=== PATIENT | male | born 1970 | race Hispanic/Latino ===

== ENCOUNTER 2017-09-16 08:49 | Emergency (ER) | payer SELFPAY ==
[2017-09-16] MEDS ORDERED: IPRATROPIUM BROM 0.5MG/2.5ML ONE (09:15)
[2017-09-16] MEDS ORDERED: ALBUTEROL 2.5 MG/3 ML NEB SOL ONE (09:15)
[2017-09-16] MEDS ORDERED: HYDROCODONE/CHLORPHEN 5 ML/OSYR ONE (09:15)
--- NOTE | 2017-09-16 10:59 | RAD REPORT ---
EXAM DESCRIPTION: Joanna Cruz (2 Views)09/16/2017 9:52 am CLINICAL HISTORY: Shortness of breath COMPARISON: None FINDINGS: The lungs appear clear of acute infiltrate. The heart is normal size IMPRESSION: No acute abnormalities displayed
--- NOTE | 2017-09-16 11:06 | ER ---
Nurse's Notes [facility] Name: Mauricio Smith Age: 46 yrs Sex: Male : 1970 Arrival Date: 09/16/2017 Time: 08:53 Bed 17 Private MD: CARLIE TANG Diagnosis: Bronchitis, not specified as acute or chronic Presentation: 09/16 09:04 Presenting complaint: Patient states: painful cough and runny nose x 1 week. Transition ss of care: patient was not received from another setting of care. Onset of symptoms was September 09, 2017. Risk Assessment: Do you want to hurt yourself or someone else? Patient reports no desire to harm self or others. Initial Sepsis Screen: Does the patient meet any 2 criteria? No. Patient's initial sepsis screen is negative. Does the patient have a suspected source of infection? No. Patient's initial sepsis screen is negative. Care prior to arrival: None. 09:04 Method Of Arrival: Ambulatory ss 09:04 Acuity: JAYME 4 ss Historical: - Allergies: 09:06 No Known Allergies; ss - Home Meds: 09:06 None [Active]; ss - PMHx: 09:06 Hypertension; ss - PSHx: 09:06 back surgery; skin graft to right arm; ss - Immunization history:: Adult Immunizations up to date. - Social history:: Smoking status: Patient uses tobacco products, smokes two packs cigarettes per day. - Ebola Screening: : Patient denies exposure to infectious person Patient denies travel to an Ebola-affected area in the 21 days before illness onset. Screenin:20 Abuse screen: Denies threats or abuse. Denies injuries from another. Nutritional sg screening: No deficits noted. Tuberculosis screening: No symptoms or risk factors identified. Never had TB. Fall Risk None identified. Assessment: 09:10 General: Appears in no apparent distress. comfortable, well groomed, well developed, sg well nourished, Behavior is calm, cooperative, appropriate for age. Pain: Denies pain. Neuro: No deficits noted. Cardiovascular: Capillary refill is brisk in bilateral fingers Patient's skin is warm and dry. Respiratory: Reports cough that is Airway is patent Respiratory effort is even, unlabored, Respiratory pattern is regular, symmetrical, Breath sounds with wheezes. GI: No signs and/or symptoms were reported involving the gastrointestinal system. : No signs and/or symptoms were reported regarding the genitourinary system. EENT: Reports nasal congestion. Derm: Skin is pink, warm \T\ dry. Musculoskeletal: No signs and/or symptoms reported regarding the musculoskeletal system. 11:20 Reassessment: pt education provided for follow up d/t blood pressure readings in the ED, and a follow up to monitor progress of current condition, pt stated understanding. Vital Signs: 09:06 BP 180 / 104; Pulse 75; Resp 18; Temp 97.9(TE); Pulse Ox 98% on R/A; Weight 117.93 kg; ss Height 5 ft. 10 in. (177.80 cm); Pain 0/10; 10:01 BP 167 / 119; Pulse 76; Resp 18; Pulse Ox 96% on R/A; mh5 09:06 Body Mass Index 37.31 (117.93 kg, 177.80 cm) ED Course: 08:53 Patient arrived in ED. sb2 08:53 CARLIE TANG is Private Physician. sb2 09:00 Primo Esposito NP is PHCP. pm1 09:00 Wes Mitchell MD is Attending Physician. pm1 09:01 Heladio Wilks, RUBIA is Primary Nurse. sg 09:05 Triage completed. ss 09:06 Arm band placed on right wrist. ss 09:10 Patient has correct armband on for positive identification. Bed in low position. Call sg light in reach. Side rails up X2. Pulse ox on. NIBP on. Head of bed elevated. 09:10 No provider procedures requiring assistance completed. sg 09:39 Patient moved to radiology. sg 09:45 Chest Pa And Lat (2 Views) XRAY In Process Unspecified. EDMS 11:05 CARLIE TANG is Referral Physician. pm1 11:20 Patient did not have IV access during this emergency room visit. sg Administered Medications: 09:19 Drug: Albuterol 2.5 mg Route: Inhalation; sg 09:37 Follow up: Response: No adverse reaction sg 09:19 Drug: AtroVENT Aerosol 0.5 mg Route: Inhalation; sg 09:37 Follow up: Response: No adverse reaction sg 09:19 Drug: Tussionex Pennkinetic ER 5 ml Route: PO; sg 09:37 Follow up: Response: No adverse reaction sg 11:16 Drug: Decadron 10 mg {Note: left ventrogluteal.} Route: IM; Site: Other; Outcome: 11:06 Discharge ordered by . pm1 11:20 Discharged to home ambulatory, with family. sg 11:20 Condition: good 11:20 Discharge instructions given to patient, Instructed on discharge instructions, follow up and referral plans. medication usage, safety practices, Demonstrated understanding of instructions, follow-up care, medications, Prescriptions given X 3. 11:23 Patient left the ED. sg Signatures: Dispatcher [employer] EDHeladio Raza RN RN sg Smirch, Shelby, RN RN ss Primo Esposito, [place] ALDERMAN pm1 Deanna Diego [facility] Ita Yu sb2 Corrections: (The following items were deleted from the chart) 09:21 09:10 Respiratory: Airway is patent Respiratory effort is even, unlabored, Respiratory sg pattern is regular, symmetrical, Breath sounds with wheezes sg
--- NOTE | 2017-09-16 11:06 | EDPHYS ---
Physician Documentation [facility] Name: aMuricio Smith Age: 46 yrs Sex: Male : 1970 Arrival Date: 09/16/2017 Time: 08:53 Bed 17 Private MD: CARLIE TANG ED Physician Wes Mitchell HPI: 09/16 11:00 This 46 yrs old Male presents to ER via Ambulatory with complaints of Chest pm1 Congestion, Cough. 11:00 The patient or guardian reports cough, with no sputum. Onset: The symptoms/episode pm1 began/occurred 2 week(s) ago. Severity of symptoms: in the emergency department the symptoms are unchanged. Modifying factors: The symptoms are alleviated by nothing, the symptoms are aggravated by nothing. Associated signs and symptoms: Pertinent positives: chest pain, with cough, rhinorrhea, Pertinent negatives: fever, sore throat, vomiting. The patient has experienced similar episodes in the past, several times. The patient has not recently seen a physician. Historical: - Allergies: 09:06 No Known Allergies; ss - Home Meds: :06 None [Active]; ss - PMHx: 09:06 Hypertension; ss - PSHx: 09:06 back surgery; skin graft to right arm; ss - Immunization history:: Adult Immunizations up to date. - Social history:: Smoking status: Patient uses tobacco products, smokes two packs cigarettes per day. - Ebola Screening: : Patient denies exposure to infectious person Patient denies travel to an Ebola-affected area in the 21 days before illness onset. ROS: 11:00 Constitutional: Negative for fever, chills, and weight loss, Eyes: Negative for injury, pm1 pain, redness, and discharge, Neck: Negative for injury, pain, and swelling, Cardiovascular: Negative for chest pain, palpitations, and edema. 11:00 Abdomen/GI: Negative for abdominal pain, nausea, vomiting, diarrhea, and constipation, Back: Negative for injury and pain, : Negative for injury, bleeding, discharge, and swelling, MS/Extremity: Negative for injury and deformity, Skin: Negative for injury, rash, and discoloration, Neuro: Negative for headache, weakness, numbness, tingling, and seizure. 11:00 ENT: Positive for rhinorrhea, Negative for ear pain. 11:00 Respiratory: Positive for cough, Negative for dyspnea on exertion, shortness of breath, sputum production, wheezing. Exam: 11:00 Constitutional: This is a well developed, well nourished patient who is awake, alert, pm1 and in no acute distress. Head/Face: Normocephalic, atraumatic. Eyes: Pupils equal round and reactive to light, extra-ocular motions intact. Lids and lashes normal. Conjunctiva and sclera are non-icteric and not injected. Cornea within normal limits. Periorbital areas with no swelling, redness, or edema. 11:00 ENT: Nares patent. No nasal discharge, no septal abnormalities noted. Tympanic membranes are normal and external auditory canals are clear. Oropharynx with no redness, swelling, or masses, exudates, or evidence of obstruction, uvula midline. Mucous membranes moist. Neck: Trachea midline, no thyromegaly or masses palpated, and no cervical lymphadenopathy. Supple, full range of motion without nuchal rigidity, or vertebral point tenderness. No Meningismus. Chest/axilla: Normal chest wall appearance and motion. Nontender with no deformity. No lesions are appreciated. Cardiovascular: Regular rate and rhythm with a normal S1 and S2. No gallops, murmurs, or rubs. Normal PMI, no JVD. No pulse deficits. 11:00 Abdomen/GI: Soft, non-tender, with normal bowel sounds. No distension or tympany. No guarding or rebound. No evidence of tenderness throughout. Back: No spinal tenderness. No costovertebral tenderness. Full range of motion. Skin: Warm, dry with normal turgor. Normal color with no rashes, no lesions, and no evidence of cellulitis. MS/ Extremity: Pulses equal, no cyanosis. Neurovascular intact. Full, normal range of motion. 11:00 Respiratory: the patient does not display signs of respiratory distress, Respirations: normal, Breath sounds: bronchial sounds, that are mild. Vital Signs: 09:06 BP 180 / 104; Pulse 75; Resp 18; Temp 97.9(TE); Pulse Ox 98% on R/A; Weight 117.93 kg; ss Height 5 ft. 10 in. (177.80 cm); Pain 0/10; 10:01 BP 167 / 119; Pulse 76; Resp 18; Pulse Ox 96% on R/A; mh5 09:06 Body Mass Index 37.31 (117.93 kg, 177.80 cm) ss MDM: 09:03 Patient medically screened. pm1 11:05 Data reviewed: vital signs. Data interpreted: Pulse oximetry: on room air is 96 %. pm1 Interpretation: normal. Counseling: I had a detailed discussion with the patient and/or guardian regarding: the historical points, exam findings, and any diagnostic results supporting the discharge/admit diagnosis, radiology results, the need for outpatient follow up, to return to the emergency department if symptoms worsen or persist or if there are any questions or concerns that arise at home, smoking cessation. 09/16 09:09 Order name: Chest Pa And Lat (2 Views) XRAY; Complete Time: 11:01 pm1 Administered Medications: 09:19 Drug: Albuterol 2.5 mg Route: Inhalation; sg 09:37 Follow up: Response: No adverse reaction 09:19 Drug: AtroVENT Aerosol 0.5 mg Route: Inhalation; sg 09:37 Follow up: Response: No adverse reaction 09:19 Drug: Tussionex Pennkinetic ER 5 ml Route: PO; sg 09:37 Follow up: Response: No adverse reaction 11:16 Drug: Decadron 10 mg {Note: left ventrogluteal.} Route: IM; Site: Other; Disposition: 09/16/17 11:06 Discharged to Home. Impression: Bronchitis, not specified as acute or chronic. - Condition is Stable. - Discharge Instructions: Acute Bronchitis, Smoking Cessation, Smoking, You Can Quit, [id number], Cough, Adult, How to Use an Inhaler, [id number]-[id number]. - Prescriptions for Medrol (Levar) 4 mg Oral Tablets, Dose Pack - take 1 tablet by ORAL route as directed - follow package instructions; 1 packet. Albuterol Sulfate 90 mcg/actuation - inhale 1-2 puff by INHALATION route every 4-6 hours; 1 Inhaler. Guaifenesin AC 10- 100 mg/5 mL Oral Liquid - take 10 milliliter by ORAL route every 4 hours As needed; 240 milliliter. - Work release form, Medication Reconciliation Form, Thank You Letter, Antibiotic Education, Prescription Opioid Use form. - Follow up: Emergency Department; When: As needed; Reason: Worsening of condition. Follow up: CARLIE TANG; When: 2 - 3 days; Reason: Recheck today's complaints, Continuance of care, Re-evaluation by your physician. - Problem is new. - Symptoms have improved. Addendum: 09/17/2017 15:26 Co-signature as Attending Physician, Wes Mitchell MD I agree with the assessment and c [email or web address] plan of care. Signatures: Dispatcher [employer] EDHeladio Raza RN RN sg Anderson, Corey, MD MD cha Smirch, Shelby, RN RN ss Marinas, Patrick, SEAMING INSPECTOR SEAMING INSPECTOR pm1 Corrections: (The following items were deleted from the chart) 09/16 11:23 11:06 09/16/2017 11:06 Discharged to Home. Impression: Bronchitis, not specified as sg acute or chronic. Condition is Stable. Forms are Medication Reconciliation Form, Thank You Letter, Antibiotic Education, Prescription Opioid Use. Follow up: Emergency Department; When: As needed; Reason: Worsening of condition. Follow up: CARLIE TANG; When: 2 - 3 days; Reason: Recheck today's complaints, Continuance of care, Re-evaluation by your physician. Problem is new. Symptoms have improved. pm1
[2017-09-16] MEDS ORDERED: DEXAMETHASONE 10 MG/ML VIAL ONE (11:12)
== END 2017-09-16 11:23 | disposition home or self-care (01) ==
LOC: ER 08:49
DX: J40 Bronchitis, not specified as acute or chronic (principal); I10 Essential (primary) hypertension; F17.210 Nicotine dependence, cigarettes, uncomplicated
CPT/HCPCS: 71046; 96372; 99284; J1100

== ENCOUNTER 2020-04-04 07:49 | Emergency (ER) | payer BC, SELFPAY ==
--- NOTE | 2020-04-04 10:00 | RAD REPORT ---
EXAM DESCRIPTION: RAD - Chest Single View - 04/04/2020 9:21 am CLINICAL HISTORY: BLUNT CHEST TRAUMA, left-sided chest pain COMPARISON: September 2017 TECHNIQUE: AP portable chest image was obtained 04/04/2020 9:21 am . FINDINGS: Lung volumes are low. No pulmonary contusion, pneumothorax or pleural fluid collection. He art and vasculature are normal. No acute bone findings seen. Rib detail is limited on single view por table imaging. No acute aortic findings suspected. IMPRESSION: No acute cardiopulmonary process. No gross rib deformity identified. Concerns for rib fracture could be further assessed with dedicated rib series.
--- NOTE | 2020-04-04 10:02 | RAD REPORT ---
EXAM DESCRIPTION: RAD - Ribs Left - 04/04/2020 9:21 am CLINICAL HISTORY: Fall, left-sided chest pain COMPARISON: Portable chest same date FINDINGS: No displaced rib fracture is seen and no non-displaced rib fractures suspected. No aggress edmundo rib lesion. No underlying pneumothorax, effusion, infiltrate or pulmonary contusion. IMPRESSION: Negative left rib series.
--- NOTE | 2020-04-04 10:04 | ER ---
Nurse's Notes [facility] Name: Mauricio Smith Age: 49 yrs Sex: Male : 1970 Arrival Date: 04/04/2020 Time: 07:56 Bed 4 Private MD: Diagnosis: Contusion of front wall of thorax Presentation: 04/04 08:13 Chief complaint: Patient states: L sided chest wall pain that began Friday after ss falling onto a brick from a standing position. Pain is worse with ROM of L shoulder and tender upon palpation. Coronavirus screen: Client denies travel out of the [place] in the last 14 days. Ebola Screen: Patient denies exposure to infectious person. Patient denies travel to an Ebola-affected area in the 21 days before illness onset. Initial Sepsis Screen: Does the patient meet any 2 criteria? No. Patient's initial sepsis screen is negative. Does the patient have a suspected source of infection? No. Patient's initial sepsis screen is negative. Risk Assessment: Do you want to hurt yourself or someone else? Patient reports no desire to harm self or others. Onset of symptoms was April 01, 2020. 08:13 Method Of Arrival: Ambulatory ss 08:13 Acuity: JAYME 4 ss Historical: - Allergies: 08:16 No Known Allergies; ss - PMHx: 08:16 Hypertension; Diabetes - NIDDM; ss - PSHx: 08:16 back; ss - Immunization history:: Adult Immunizations up to date. - Social history:: Smoking status: Patient reports the use of cigarette tobacco products, smokes two packs cigarettes per day. - Family history:: not pertinent. - Hospitalizations: : No recent hospitalization is reported. Screenin:16 Abuse screen: Denies threats or abuse. Denies injuries from another. Nutritional ss screening: No deficits noted. Tuberculosis screening: Never had TB. Fall Risk None identified. Assessment: 08:16 General: Appears in no apparent distress. comfortable, Behavior is calm, cooperative. ss Pain: Complains of pain in left lateral anterior chest Pain currently is 8 out of 10 on a pain scale. Quality of pain is described as aching, tender, Pain began 2-3 days ago Is continuous, Aggravated by increased activity. Neuro: Level of Consciousness is awake, alert, obeys commands, Oriented to person, place, time, situation, Delivery Engineer are equal bilaterally. Cardiovascular: Capillary refill < 3 seconds is brisk in bilateral. Cardiovascular: Denies chest pain, fatigue, lightheadedness, nausea, palpitations, shortness of breath. Respiratory: Airway is patent Respiratory effort is even, unlabored, Respiratory pattern is regular, symmetrical. GI: Patient currently denies diarrhea, nausea, vomiting. : No signs and/or symptoms were reported regarding the genitourinary system. EENT: Nares are clear Oral mucosa is moist. Derm: Skin is intact, is healthy with good turgor, Skin is pink, warm \T\ dry. normal. Musculoskeletal: Circulation, motion, and sensation intact. Range of motion: intact in all extremities, Swelling absent. Vital Signs: 08:13 BP 150 / 94; Pulse 92; Resp 18; Temp 98.0(TE); Pulse Ox 95% on R/A; Weight 113.4 kg; ss Height 5 ft. 7 in. (170.18 cm); Pain 8/10; 09:51 BP 159 / 93; Pulse 85; Resp 18; Pulse Ox 95% ; sv 08:13 Body Mass Index 39.16 (113.40 kg, 170.18 cm) ss ED Course: 07:56 Patient arrived in ED. rg4 08:00 Brian Gaona MD is Attending Physician. rn 08:13 [place] Dalton RN is Primary Nurse. ss 08:15 Triage completed. ss 08:16 Arm band placed on right wrist. ss 08:16 Patient has correct armband on for positive identification. Bed in low position. Call ss light in reach. Pulse ox on. NIBP on. 08:57 Patient moved to radiology via wheelchair. sv 09:21 XRAY Chest (1 view) In Process Unspecified. EDMS 09:21 XRAY Ribs LEFT In Process Unspecified. EDMS 10:27 No provider procedures requiring assistance completed. Patient did not have IV access ss during this emergency room visit. Administered Medications: No medications were administered Outcome: 10:03 Discharge ordered by . rn 10:27 Discharged to home ambulatory. ss 10:27 Condition: good 10:27 Discharge instructions given to patient, Instructed on discharge instructions, follow up and referral plans. medication usage, Demonstrated understanding of instructions, follow-up care, medications. 10:28 Patient left the ED. ss Signatures: Dispatcher [employer] Renée Oconnor, RUBIA RN Brian Rodriguez MD MD rn Smirch, Shelby, RN RN ss Garcia, Rubi 4
--- NOTE | 2020-04-04 10:04 | EDPHYS ---
Physician Documentation [facility] Name: Mauricio Smith Age: 49 yrs Sex: Male : 1970 Arrival Date: 04/04/2020 Time: 07:56 Bed 4 Private MD: ED Physician Brian Gaona HPI: 04/04 08:09 This 49 yrs old Male presents to ER via Unassigned with complaints of Chest rn Pain and Side Pain from Fall. 08:09 The patient or guardian reports chest pain that is located primarily in the anterior rn chest wall, left lateral anterior chest. Onset: The symptoms/episode began/occurred 3 day(s) ago. The pain does not radiate. Associated signs and symptoms: Pertinent negatives: abdominal pain, cough, diaphoresis, shortness of breath, syncope, vomiting. The chest pain is described as dull. Duration: The patient or guardian reports multiple episodes, that wax and wane. Modifying factors: The symptoms are alleviated by nothing. the symptoms are aggravated by deep breath, palpation of area. Severity of pain: At its worst the pain was moderate in the emergency department the pain is unchanged. The patient has not experienced similar symptoms in the past. The patient has not recently seen a physician. Reports left chest wall pain after fall, landed on left side, hit a brick, reports pain improved for a short period of time, but returned and now more anterior. No sob. Reports pain with deep breath and palpation. No hemoptysis. No blood thinners. . Historical: - Allergies: 08:16 No Known Allergies; ss - PMHx: 08:16 Hypertension; Diabetes - NIDDM; ss - PSHx: 08:16 back; ss - Immunization history:: Adult Immunizations up to date. - Social history:: Smoking status: Patient reports the use of cigarette tobacco products, smokes two packs cigarettes per day. - Family history:: not pertinent. - Hospitalizations: : No recent hospitalization is reported. ROS: 08:09 Constitutional: Negative for fever, chills, and weight loss, Eyes: Negative for injury, rn pain, redness, and discharge, Neck: Negative for injury, pain, and swelling, Cardiovascular: + left anterior chest wall pain and injury Respiratory: Negative for shortness of breath, cough, wheezing Abdomen/GI: Negative for abdominal pain, nausea, vomiting, diarrhea, and constipation, Back: Negative for injury and pain, MS/Extremity: Negative for injury and deformity, Skin: Negative for injury, rash, and discoloration, Neuro: Negative for headache, weakness, numbness, tingling, and seizure. Exam: 08:09 Constitutional: This is a well developed, well nourished patient who is awake, alert, rn and in no acute distress. Ambulatory to room without difficulty or assistance. Able to undress on his own Head/Face: Normocephalic, atraumatic. Cardiovascular: Regular rate and rhythm. No pulse deficits. Respiratory: No increased work of breathing, no retractions or nasal flaring. Abdomen/GI: Soft, non-tender, with normal bowel sounds. No distension or tympany. No guarding or rebound. No evidence of tenderness throughout. Skin: Warm, dry with normal turgor. Normal color with no rashes, no lesions, and no evidence of cellulitis. MS/ Extremity: Pulses equal, no cyanosis. Neurovascular intact. Full, normal range of motion. Equal circumference. Neuro: Awake and alert, GCS 15, oriented to person, place, time, and situation. Cranial nerves II-XII grossly intact. Motor strength 5/5 in all extremities. Sensory grossly intact. Cerebellar exam normal. Normal gait. Vital Signs: 08:13 BP 150 / 94; Pulse 92; Resp 18; Temp 98.0(TE); Pulse Ox 95% on R/A; Weight 113.4 kg; ss Height 5 ft. 7 in. (170.18 cm); Pain 8/10; 09:51 BP 159 / 93; Pulse 85; Resp 18; Pulse Ox 95% ; sv 08:13 Body Mass Index 39.16 (113.40 kg, 170.18 cm) ss MDM: 08:01 Patient medically screened. rn 09:45 ED course: Delay by radiology, took 1 hour to get xrays, still waiting on results.. rn 10:02 Differential diagnosis: Blunt Chest Trauma Chest Wall Contusion Rib Fracture. Data rn reviewed: vital signs, nurses notes, radiologic studies, plain films, and as a result, I will discharge patient. Counseling: I had a detailed discussion with the patient and/or guardian regarding: the historical points, exam findings, and any diagnostic results supporting the discharge/admit diagnosis, radiology results, the need for outpatient follow up, to return to the emergency department if symptoms worsen or persist or if there are any questions or concerns that arise at home. Special discussion: I discussed with the patient/guardian in detail that at this point there is no indication for admission to the hospital. It is understood, however, that if the symptoms persist or worsen the patient needs to return immediately for re-evaluation. 04/04 08:09 Order name: XRAY Chest (1 view); Complete Time: 10: rn 04/04 08:09 Order name: XRAY Ribs LEFT; Complete Time: 10:02 rn Administered Medications: No medications were administered Disposition: 04/04/20 10:03 Discharged to Home. Impression: Contusion of front wall of thorax. - Condition is Stable. - Discharge Instructions: Rib Contusion. - Medication Reconciliation Form, Thank You Letter, Antibiotic Education, Prescription Opioid Use form. - Follow up: Private Physician; When: As needed; Reason: Recheck today's complaints, Re-evaluation by your physician. - Problem is new. - Symptoms have improved. Signatures: Dispatcher [employer] EDMS Brian Gaona MD MD rn Smirch, Shelby, RN RN ss Corrections: (The following items were deleted from the chart) 10:28 10:03 04/04/2020 10:03 Discharged to Home. Impression: Contusion of front wall of ss thorax. Condition is Stable. Discharge Instructions: Rib Contusion. Forms are Medication Reconciliation Form, Thank You Letter, Antibiotic Education, Prescription Opioid Use. Follow up: Private Physician; When: As needed; Reason: Recheck today's complaints, Re-evaluation by your physician. Problem is new. Symptoms have improved. rn
[2020-04-04 10:31] VITALS: TEMP 98; O2SAT 95
[2020-04-04 10:33] VITALS: BP 159/93
== END 2020-04-04 10:28 | disposition home or self-care (01) ==
LOC: ER 07:49
DX: S20.212A Contusion of left front wall of thorax, initial encounter (principal); W18.39XA Other fall on same level, initial encounter; Y93.9 Activity, unspecified; Y92.9 Unspecified place or not applicable; I10 Essential (primary) hypertension; F17.210 Nicotine dependence, cigarettes, uncomplicated
CPT/HCPCS: 71045; 99283

== ENCOUNTER 2021-11-24 10:17 | Emergency (ER) | payer BC ==
[2021-11-24] MEDS ORDERED: IBUPROFEN 400 MG TAB ONE (11:10)
--- NOTE | 2021-11-24 12:12 | RAD REPORT ---
EXAM DESCRIPTION: RAD - Ankle Left 3 View - 11/24/2021 11:10 am CLINICAL HISTORY: PAINslip and fall, twisting injury COMPARISON: No comparisons FINDINGS: Oblique nondisplaced fracture of the distal fibula is present significant lateral soft tis hiram swelling is present. Medial malleolus and posterior malleolus appear intact. There is mild degene rative change along the tibiotalar joint space. No joint effusion seen. Small Achilles spur is presen t. Moderate-sized plantar spur. IMPRESSION: Distal left fibula fracture with no significant distraction or angulation deformity.
--- NOTE | 2021-11-24 12:40 | ER ---
Nurse's Notes [facility] Name: Mauricio Smith III Age: 51 yrs Sex: Male : 1970 Arrival Date: 11/24/2021 Time: 10:20 Bed 9 Private MD: Diagnosis: Closed left distal fibula fracture Presentation: 11/24 10:26 Chief complaint: Patient states: slipped and twisted left ankle last night while iw cutting the yard. Coronavirus screen: At this time, the client does not indicate any symptoms associated with coronavirus-19. Ebola Screen: Patient negative for fever greater than or equal to 101.5 degrees Fahrenheit, and additional compatible Ebola Virus Disease symptoms Patient denies exposure to infectious person. Patient denies travel to an Ebola-affected area in the 21 days before illness onset. No symptoms or risks identified at this time. Initial Sepsis Screen: Does the patient meet any 2 criteria? No. Patient's initial sepsis screen is negative. Does the patient have a suspected source of infection? No. Patient's initial sepsis screen is negative. Risk Assessment: Do you want to hurt yourself or someone else? Patient reports no desire to harm self or others. Onset of symptoms was November 23, 2021. 10:26 Method Of Arrival: Wheelchair iw 10:26 Acuity: JAYME 4 iw Triage Assessment: 11:00 General: Appears in no apparent distress. Behavior is calm, cooperative. iw Historical: - Allergies: 10:27 No Known Allergies; iw - Home Meds: 10:27 no meds for one year [Active]; iw - PMHx: 10:27 Diabetes - NIDDM; Hypertension; iw - PSHx: 10:27 back; iw - Immunization history:: Adult Immunizations unknown. - Social history:: Smoking status: . Screenin:57 Abuse screen: Denies threats or abuse. Denies injuries from another. Nutritional iw screening: No deficits noted. Tuberculosis screening: No symptoms or risk factors identified. Fall Risk Fall in past 12 months (25 points). Assessment: 10:30 General: Appears in no apparent distress. Behavior is calm, cooperative. Pain: iw Complains of pain in left lateral ankle. Neuro: Rodriguez Agitation-Sedation Scale (RASS): Level of Consciousness is awake, alert, obeys commands, Oriented to person, place, time, situation, Moves all extremities. Full function. Cardiovascular: Patient's skin is warm and dry. Respiratory: Respiratory effort is even, unlabored, Respiratory pattern is regular, symmetrical. GI:. Derm: Skin is intact, is healthy with good turgor. Musculoskeletal: Range of motion: limited in left ankle. Vital Signs: 10:28 BP 154 / 95; Pulse 97; Resp 16; Pulse Ox 98% on R/A; iw ED Course: 10:20 Patient arrived in ED. as 10:26 Renée Mendez MD is Attending Physician. sd2 10:27 Triage completed. iw 10:29 Arm band placed on. iw 10:30 Patient has correct armband on for positive identification. iw 10:59 Awilda Rich RN is Primary Nurse. iw 11:12 XRAY Ankle LEFT 3 view In Process Unspecified. EDMS 12:39 Heladio Bird MD is Referral Physician. sd2 12:57 No provider procedures requiring assistance completed. Patient did not have IV access iw during this emergency room visit. Administered Medications: 11:00 Drug: Motrin (ibuprofen) 800 mg Route: PO; iw 12:00 Follow up: Response: No adverse reaction iw Medication: 10:30 VIS not applicable for this client. iw Outcome: 12:39 Discharge ordered by . sd2 12:57 Discharged to home ambulatory, with crutches, with family. iw 12:57 Condition: good 12:57 Discharge instructions given to patient, Instructed on discharge instructions, follow up and referral plans. medication usage, Demonstrated understanding of instructions, follow-up care, medications, Prescriptions given X 1. 12:58 Patient left the ED. iw Signatures: Dispatcher [employer] EDMS Nirmala Diego as Awilda Rich, RUBIA RN iw Renée Mendez MD MD sd2 Corrections: (The following items were deleted from the chart) : 10: Home Meds: None; iw iw
--- NOTE | 2021-11-24 12:40 | EDPHYS ---
Physician Documentation [facility] Name: Mauricio Smith III Age: 51 yrs Sex: Male : 1970 Arrival Date: 11/24/2021 Time: 10:20 Bed 9 Private MD: ED Physician Renée Mendez HPI: 11/24 10:35 This 51 yrs old Male presents to ER via Wheelchair with complaints of Ankle sd2 Swelling, Ankle Injury. 10:35 51-year-old male presents with chief complaint of left ankle pain and swelling after he sd2 was working in the yard and slipped and fell twisting his left ankle. He complains of pain and swelling to the lateral left ankle. He has been able to bear some weight on it but it is very painful. He denies any associated fevers or other areas of injury. Aggravating factors include walking and movement. Alleviating factors include rest.. Historical: - Allergies: 10:27 No Known Allergies; iw - Home Meds: 10:27 no meds for one year [Active]; iw - PMHx: 10:27 Diabetes - NIDDM; Hypertension; iw - PSHx: 10:27 back; iw - Immunization history:: Adult Immunizations unknown. - Social history:: Smoking status: . ROS: 10:35 Constitutional: Negative for fever, chills, and weight loss, Eyes: Negative for injury, sd2 pain, redness, and discharge, MS/Extremity: Positive for injury, pain and swelling. Negative for deformity. Skin: Negative for injury, rash, and discoloration, Neuro: Negative for headache, numbness and tingling. Exam: 10:35 Constitutional: This is a well developed, well nourished patient who is awake, alert, sd2 and in no acute distress. Head/Face: Normocephalic, atraumatic. Eyes: EOMI, normal conjunctiva bilaterally Skin: Warm, dry with normal turgor. Normal color with no rashes, no lesions, and no evidence of cellulitis. MS/ Extremity: Pulses equal, no cyanosis. Neurovascular intact. Full, normal range of motion. TTP of the L lateral malleolus with no appreciable swelling. Able to wiggle toes distal to ankle. 2+ DP pulse with normal sensation. Psych: Awake, alert, with orientation to person, place and time. Behavior, mood, and affect are within normal limits. Vital Signs: 10:28 BP 154 / 95; Pulse 97; Resp 16; Pulse Ox 98% on R/A; iw MDM: 10:35 Differential diagnosis: fracture, sprain, gout, among others. Data reviewed: vital sd2 signs, nurses notes. 10:38 Patient medically screened. sd2 12:37 Counseling: I had a detailed discussion with the patient and/or guardian regarding: the sd2 historical points, exam findings, and any diagnostic results supporting the discharge/admit diagnosis, radiology results, the need for outpatient follow up, to return to the emergency department if symptoms worsen or persist or if there are any questions or concerns that arise at home. Medical screen evaluation completed. EMTALA emergency medical condition absent. ED course: Imaging reviewed with fibula fracture present. Pt is closed and NVI. Pt informed of results and need for follow up outpatient with PCP and orthopedics. He was given walking boot and crutches and will WBAT. Advised of continued supportive care and verbalizes understanding of discharge plan and strict return precautions.. 11/24 10:35 Order name: XRAY Ankle LEFT 3 view; Complete Time: 12:20 sd2 11/24 12:20 Order name: Crutches; Complete Time: 12:51 sd2 11/24 12:20 Order name: Walking boot; Complete Time: 12:51 sd2 Administered Medications: 11:00 Drug: Motrin (ibuprofen) 800 mg Route: PO; iw 12:00 Follow up: Response: No adverse reaction iw Disposition Summary: 11/24/21 12:39 Discharge Ordered Location: Home sd2 Problem: new sd2 Symptoms: have improved sd2 Condition: Stable sd2 Diagnosis - Closed left distal fibula fracture sd2 Followup: sd2 - With: Heladio Bird MD - When: 1 week - Reason: Continuance of care Followup: sd2 - With: Emergency Department - When: As needed - Reason: Discharge Instructions: - Discharge Summary Sheet sd2 - Nondisplaced Fibular Ankle Fracture Treated With Immobilization sd2 - Fibular Fracture Rehab-SportsMed sd2 Forms: - Medication Reconciliation Form sd2 - Thank You Letter sd2 - Work release form sd2 - Antibiotic Education sd2 - Prescription Opioid Use sd2 Signatures: Dispatcher [employer] EDMS Hilario, Awilda, RUBIA RN Renée Gray MD MD sd2 Corrections: (The following items were deleted from the chart) 10:28 10:27 [place] Meds: None; lesli ballesteros
[2021-11-24 13:42] VITALS: BP 154/95; O2SAT 98
== END 2021-11-24 12:58 | disposition home or self-care (01) ==
LOC: ER 10:17
DX: S82.832A Other fracture of upper and lower end of left fibula, initial encounter for closed fracture (principal); E11.9 Type 2 diabetes mellitus without complications; I10 Essential (primary) hypertension
CPT/HCPCS: 99283

== ENCOUNTER 2024-07-09 12:20 | Emergency (ER) | payer BC, SELFPAY ==
[2024-07-09 16:00] LABS: PT Prothrombin Time 12.7 SECONDS (10-13.0); PTT, Activated Partial Thromb 32.9 SECONDS (27.2-37.4); Protime INR 1.12
[2024-07-09 16:01] LABS: Absolute Eosinophils 0.1 K/uL (0-0.5); Absolute Lymphocytes (CBC) 2.1 K/uL (0.7-4.9); Absolute Monocytes 0.5 K/uL (0.1-1.3); Absolute Neutrophil 5.7 K/uL (1.8-8.0); Basophils % 0.5 % (0-1.3); Eosinophils % 1.1 % (0-4.4); Hematocrit 47.9 % (39.6-49.0); Hemoglobin 16.5 g/dL (13.6-17.9); MCH 32.7 pg (27.0-35.0); MCHC 34.5 g/dL (32.0-36.0); MPV 9.6 fL (7.6-11.3); Monocytes % 5.9 % (3.3-12.3); Neutrophils % 67.5 % (41.7-73.7); Nucleated Red Blood Cells % 0.1 % (0-0); Platelets 152 thou/uL (152-406); RBC Red Blood Cell Count 5.04 M/uL (4.33-5.43); Red Cell Distribution Width 14.7 % (12.1-15.2)
--- NOTE | 2024-07-09 16:08 | RAD REPORT ---
EXAMINATION: Lumbar Spine Wo Con CLINICAL INDICATION: Male, 53 years old. lumbar surgery 3 months ago, bilateral leg pain and paresth TECHNIQUE: Multiplanar multisequence MR images were obtained of the lumbar spine without intravenous contrast. Unless otherwise specified, incidental findings do not require dedicated imaging follow-up. [id number]. COMPARISON: No prior exam. FINDINGS: For purposes of this dictation, it is assumed that there are 5 non rib-bearing lumbar type vertebrae, and the most caudal fully segmented lumbar vertebra is labeled L5. ALIGNMENT: The lumbar spine has normal alignment. BONE: Vertebral bodies are normal in height. There is a normal marrow signal pattern. CORD: No abnormal signal in the cord. The conus medullaris terminates at a normal level. The nerve ro ots of the cauda equina appear normal. 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 SOFT TISSUE: The included paraspinal soft tissues and retroperitoneal structures are grossly normal. EVALUATION OF THE INDIVIDUAL LEVELS: L1-L2 :Disc is normal in height and signal intensity. No significant spinal canal or neural foraminal stenosis. L2-L3: Right foraminal/lateral disc protrusion with contact of the exiting right L2 nerve root. The l eft neural foramen are adequate. No central spinal stenosis. L3-L4: Mild broad-based disc bulge with facet and ligamentum flavum hypertrophy results in mild bilat eral neural foraminal narrowing. Congenitally narrowed spinal canal but no high-grade central spinal stenosis. L4-L5: Posteriorly fused level with interbody cage. Congenitally narrowed spinal canal. No high-grad e central spinal stenosis. The neural foramina are probably adequate. There is artifact. There is left subarticular zone narrowing. L5-S1: Fused level. No central spinal stenosis or significant neural foraminal narrowing. IMPRESSION: Status post L4-S1 fusion. With regard to a right-sided radiculopathy, a right lateral disc protrusion is present which encroaches on the exiting right L2 nerve root and could be the source of the patient's pain. The patient has a congenitally narrowed spinal canal but without evidence of high-gra de central spinal stenosis.
--- NOTE | 2024-07-09 16:19 | RAD REPORT ---
EXAM: Lower Extremity Arterial Bilat HISTORY: NUMBNESS/TINGLING COMPARISON: None TECHNIQUE: Multiplanar grayscale and color Doppler images were obtained and a bilateral lower extrem ity arterial ultrasound. Spectral analysis of the Doppler waveforms were performed. FINDINGS: No significant calcified plaque is seen in either lower extremity. Right lower extremity: Common femoral artery: Triphasic Superficial femoral artery: Triphasic Popliteal artery: Triphasic Posterior tibial artery: Triphasic Dorsalis pedis artery: Triphasic Left lower extremity: Common femoral artery: Triphasic Superficial femoral artery: Triphasic Popliteal artery: Triphasic Posterior tibial artery: Biphasic Dorsalis pedis artery: Monophasic IMPRESSION: Multiphasic waveforms throughout both the right and left lower extremity except for the left dorsalis pedis artery which has a monophasic waveform and may be at least moderately narrowed.
--- NOTE | 2024-07-09 16:41 | EDPHYS ---
Physician Documentation [facility] Name: Mauricio Smith III Age: 53 yrs Sex: Male : 1970 Arrival Date: 07/09/2024 Time: 12:14 Bed 7 Private MD: ED Physician Brian Gaona HPI: 07/09 14:02 This 53 yrs old Male presents to ER via Wheelchair with complaints of Numbness rn - both legs. 14:02 The patient's problem is reported as Numbness and pain of bilateral lower extremities. rn Onset: The symptoms/episode began/occurred 1 month(s) ago. Duration: The episodes are intermittent. The symptoms are alleviated by nothing. The symptoms are aggravated by nothing. Associated signs and symptoms: Pertinent positives: numbness, Pertinent negatives: abdominal pain, ataxia, seizure, weakness. Severity of symptoms: At their worst the symptoms were mild in the emergency department the symptoms are unchanged. 14:07 The patient has experienced similar episodes in the past. Patient reports had double rn lumbar fusion 3-1/2 months ago in [place]. Since then has been having intermittent numbness and tingling of bilateral lower extremities as well as pain. Patient reports pain worse at night. No trauma. No known arterial insufficiency or blockages. Was diagnosed with DVT of the left lower extremity at the time of surgery and is still taking blood thinners. No weakness. No bowel or bladder incontinence or retention.. Historical: - Allergies: 12:44 No Known Allergies; ap3 - PMHx: 12:44 Diabetes - NIDDM; Hypertension; ap3 - PSHx: 12:44 back; ap3 - Immunization history:: Client reports receiving the 2nd dose of the Covid vaccine, Flu vaccine is not up to date. - Infectious Disease History:: Denies. - Social history:: Smoking status: Patient reports the use of cigarette tobacco products. - Family history:: not pertinent. - Hospitalizations: : No recent hospitalization is reported. ROS: 14:07 Constitutional: Negative for fever, chills, and weight loss, Neck: Negative for injury, rn pain, and swelling, Cardiovascular: Negative for chest pain, palpitations, and edema, Respiratory: Negative for shortness of breath, cough, wheezing, and pleuritic chest pain, Abdomen/GI: Negative for abdominal pain, nausea, vomiting, diarrhea, and constipation, Back: Negative for injury and pain, MS/Extremity: Negative for injury and deformity, Skin: Negative for injury, rash, and discoloration, Neuro: Negative for headache, weakness, and seizure, Exam: 14:07 Constitutional: This is a well developed, well nourished patient who is awake, alert, rn and in no acute distress. Cardiovascular: Regular rate and rhythm. No pulse deficits. Respiratory: No increased work of breathing, no retractions or nasal flaring. MS/ Extremity: Pulses equal, no cyanosis. Neurovascular intact. Equal strength bilaterally. No discoloration. No swelling. Equal circumference. Neuro: Awake and alert, GCS 15 Vital Signs: 12:42 BP 156 / 110; Pulse 73; Resp 18; Temp 97.9; Pulse Ox 100% ; Weight 92.99 kg; Height 5 ap3 ft. 9 in. ; Pain 10/10; 14:15 BP 148 / 89; Pulse 65; Resp 18; Pulse Ox 100% on R/A; ph 16:00 BP 158 / 99; Pulse 69; Resp 14 S; Pulse Ox 99% on R/A; aa5 17:00 BP 158 / 82; Pulse 68; Resp 16 S; Pulse Ox 100% on R/A; aa5 12:42 Body Mass Index 30.27 (92.99 kg, 175.26 cm) ap3 12:42 Pain Scale: Adult ap3 MDM: 12:27 Medical Screening Exam initiated rn 16:39 Differential diagnosis: Lumbar radiculopathy, spinal cord compression, infection, rn complication from surgery. Data reviewed: vital signs, nurses notes, lab test result(s), radiologic studies, doppler, MRI, and as a result, I will discharge patient. Counseling: I had a detailed discussion with the patient and/or guardian regarding the historical points, exam findings, and any diagnostic results supporting the discharge/admit diagnosis, lab results, radiology results, the need for outpatient follow up, to return to the emergency department if symptoms worsen or persist or if there are any questions or concerns that arise at home. Special discussion: I discussed with the patient/guardian in detail that at this point there is no indication for admission to the hospital. It is understood, however, that if the symptoms persist or worsen the patient needs to return immediately for re-evaluation. Based on the history and exam findings, there is no indication for further emergent testing or inpatient evaluation. I discussed with the patient/guardian the need to see the back specialist for further evaluation of the symptoms. 07/09 12:45 Order name: CBC with Diff; Complete Time: 16:10 rn 07/09 12:45 Order name: Basic Metabolic Panel; Complete Time: 16:10 rn 07/09 12:45 Order name: Protime (+inr); Complete Time: 16:10 rn 07/09 12:45 Order name: Ptt, Activated; Complete Time: 16:10 rn 07/09 12:45 Order name: MRI Lumbar Spine wo Con; Complete Time: 16:10 rn 07/09 12:45 Order name: Lower Extremity Arterial Bilat US; Complete Time: 16:27 rn 07/09 12:45 Order name: IV Start; Complete Time: 13:31 rn Administered Medications: 13:47 Drug: morphine IVP or IV 4 mg IVP once over 4 mins Route: IVP; Infused Over: 4 mins; aa5 Site: left antecubital; 14:00 Follow up: Response: No adverse reaction; Pain is decreased aa5 16:45 Drug: morphine IVP or IV 4 mg IVP once over 4 mins Route: IVP; Infused Over: 4 mins; aa5 Site: left antecubital; 17:00 Follow up: Response: No adverse reaction aa5 Disposition Summary: 07/09/24 16:40 Discharge Ordered Notes: Location: Home rn Problem: an ongoing problem rn Symptoms: have improved rn Condition: Stable rn Diagnosis - Radiculopathy, lumbar region rn Followup: rn - With: Private Physician - When: As needed - Reason: Recheck today's complaints, Re-evaluation by your physician Discharge Instructions: - Discharge Summary Sheet rn - Lumbosacral Radiculopathy rn - Pinched Nerve rn - Back Exercises rn Forms: - Medication Reconciliation Form rn - Antibiotic learning coordinator - Prescription Opioid Use rn - Patient Portal Instructions rn - Leadership Thank You Letter rn Prescriptions: - Medrol (Levar) 4 mg Oral Tablets, Dose Pack - take 1 tablet ORAL route as directed - follow package instructions; 1 packet; rn Refills: 0, Product Selection Permitted Signatures: Dispatcher [employer] EDBrian Babin MD MD rn Calderon, Audri RN RN aa5 Julia Dumont RN RN ap3 Corrections: (The following items were deleted from the chart) 14:56 14:56 Lumbar Spine Wo Con+MRI.RAD.BRZ ordered. EDMS EDMS 14:56 14:56 Lower Extremity Arterial Bilat+US.RAD.BRZ ordered. EDMS EDMS 14:56 14:56 CBC+H.LAB.BRZ ordered. EDMS EDMS 14:56 14:56 BASIC METABOLIC PANEL+C.LAB.BRZ ordered. EDMS EDMS 14:56 14:56 PROTIME (+INR)+COAG.LAB.BRZ ordered. EDMS EDMS 14:56 14:56 PTT, ACTIVATED+COAG.LAB.BRZ ordered. EDMS EDMS
--- NOTE | 2024-07-09 16:41 | ER ---
Nurse's Notes [facility] Name: Mauricio Smith III Age: 53 yrs Sex: Male : 1970 Arrival Date: 07/09/2024 Time: 12:14 Bed 7 Private MD: Diagnosis: Radiculopathy, lumbar region Presentation: 07/09 12:42 Chief complaint: Patient states: he has bee feeling weakness and pain in both legs that ap3 started approx one month ago, patient is on Plavix. Patient reports normal urine and bowel habits. patient states the pain is the worst when he is laying down, and the blanket is touching is legs. patient currently rates his pain as a 10/10 on the pain scale. Coronavirus screen: At this time, the client does not indicate any symptoms associated with coronavirus-19. Ebola Screen: No symptoms or risks identified at this time. Initial Sepsis Screen: Does the patient meet any 2 criteria? No. Patient's initial sepsis screen is negative. Does the patient have a suspected source of infection? No. Patient's initial sepsis screen is negative. Risk Assessment: Do you want to hurt yourself or someone else? Patient reports no desire to harm self or others. Onset of symptoms is unknown. 12:42 Method Of Arrival: Wheelchair ap3 12:42 Acuity: JAYME 3 ap3 Triage Assessment: 12:45 General: Appears in no apparent distress. Behavior is calm, cooperative, appropriate ap3 for age. Pain: Complains of pain in right leg and left leg Pain currently is 10 out of 10 on a pain scale. Neuro: Level of Consciousness is awake, alert, obeys commands, Oriented to person, place, time, situation, Reports weakness in right leg and left leg. Cardiovascular: Patient's skin is warm and dry. Respiratory: Airway is patent Respiratory effort is even, unlabored, Respiratory pattern is regular, symmetrical. Historical: - Allergies: 12:44 No Known Allergies; ap3 - PMHx: 12:44 Diabetes - NIDDM; Hypertension; ap3 - PSHx: 12:44 back; ap3 - Immunization history:: Client reports receiving the 2nd dose of the Covid vaccine, Flu vaccine is not up to date. - Infectious Disease History:: Denies. - Social history:: Smoking status: Patient reports the use of cigarette tobacco products. - Family history:: not pertinent. - Hospitalizations: : No recent hospitalization is reported. Screenin:46 [facility] ED Fall Risk Assessment (Adult) History of falling in the last 3 months, ap3 including since admission No falls in past 3 months (0 pts) Confusion or Disorientation No (0 pts) Intoxicated or Sedated No (0 pts) Impaired Gait Yes (1 pt) Mobility Assist Device Used Yes (1 pt) Altered Elimination No (0 pt) Score/Fall Risk Level 0 - 2 = Low Risk Oriented to surroundings, Maintained a safe environment, Educated pt \T\ family on fall prevention, incl call for assistance when getting out of bed, Assessed \T\ reinforced patient's understanding of fall precautions, Hourly rounding (assess needs \T\ fall precautionary measures) done, Used ambulatory aids as needed (educated on \T\ assisted with). Abuse screen: Denies threats or abuse. Nutritional screening: No deficits noted. Tuberculosis screening: No symptoms or risk factors identified. Assessment: 13:30 General: Appears comfortable, Behavior is calm, cooperative. Pain: Complains of pain in aa5 wm lower extremities Pain currently is 10 out of 10 on a pain scale. Quality of pain is described as numb, Pain began 1 month ago Is continuous. Neuro: Level of Consciousness is awake, alert, obeys commands, Oriented to person, place, time, situation. Cardiovascular: Heart tones S1 S2 present Rhythm is regular. Respiratory: Airway is patent Respiratory effort is even, unlabored, Respiratory pattern is regular, symmetrical. GI: No signs and/or symptoms were reported involving the gastrointestinal system. : No signs and/or symptoms were reported regarding the genitourinary system. EENT: No signs and/or symptoms were reported regarding the EENT system. Derm: Skin is pink, warm \T\ dry. Musculoskeletal: Range of motion: intact in all extremities. 14:00 Reassessment: Patient is alert, oriented x 3, equal unlabored respirations, skin aa5 warm/dry/pink. Patient states feeling better. 14:00 Pain: Pain currently is 5 out of 10 on a pain scale. aa5 16:45 Reassessment: Patient is alert, oriented x 3, equal unlabored respirations, skin aa5 warm/dry/pink. 17:10 Reassessment: Patient is alert, oriented x 3, equal unlabored respirations, skin aa5 warm/dry/pink. Vital Signs: 12:42 BP 156 / 110; Pulse 73; Resp 18; Temp 97.9; Pulse Ox 100% ; Weight 92.99 kg; Height 5 ap3 ft. 9 in. ; Pain 10/10; 14:15 BP 148 / 89; Pulse 65; Resp 18; Pulse Ox 100% on R/A; ph 16:00 BP 158 / 99; Pulse 69; Resp 14 S; Pulse Ox 99% on R/A; aa5 17:00 BP 158 / 82; Pulse 68; Resp 16 S; Pulse Ox 100% on R/A; aa5 12:42 Body Mass Index 30.27 (92.99 kg, 175.26 cm) ap3 12:42 Pain Scale: Adult ap3 ED Course: 12:14 Patient arrived in ED. al6 12:27 Brian Gaona MD is Attending Physician. rn 12:35 Triage completed. jl7 12:46 Arm band placed on left wrist. ap3 13:24 Jessica Garvey, RN is Primary Nurse. aa5 13:25 Missed attempt(s): 20 gauge in right antecubital area. Bleeding controlled, band aid jl7 applied, catheter tip intact. 13:30 Patient has correct armband on for positive identification. Bed in low position. Call aa5 light in reach. Side rails up X2. Pulse ox on. NIBP on. 13:36 Initial lab(s) drawn, by me, sent to lab. Inserted saline lock: 20 gauge in left jl7 antecubital area, using aseptic technique. Blood collected. Flushed with 10 mL NS. 13:40 No provider procedures requiring assistance completed. aa5 15:37 MRI Lumbar Spine wo Con In Process Unspecified. EDMS 15:55 Lower Extremity Arterial Bilat US In Process Unspecified. EDMS 17:10 IV discontinued, intact, bleeding controlled, No redness/swelling at site. Pressure aa5 dressing applied. Administered Medications: 13:47 Drug: morphine IVP or IV 4 mg IVP once over 4 mins Route: IVP; Infused Over: 4 mins; aa5 Site: left antecubital; 14:00 Follow up: Response: No adverse reaction; Pain is decreased aa5 16:45 Drug: morphine IVP or IV 4 mg IVP once over 4 mins Route: IVP; Infused Over: 4 mins; aa5 Site: left antecubital; 17:00 Follow up: Response: No adverse reaction aa5 Medication: 13:40 VIS not applicable for this client. aa5 Outcome: 16:40 Discharge ordered by . rn 17:10 Discharged to home via wheelchair, with family, aa5 17:10 Condition: stable 17:10 Discharge instructions given to patient, Instructed on discharge instructions, follow up and referral plans. medication usage, Demonstrated understanding of instructions, follow-up care, medications, Prescriptions given X 1, 17:15 Patient left the ED. aa5 Signatures: Dispatcher [employer] EDMS Brian Gaona MD MD rn Calderon, Audri RN RN aa5 Fe Dumont RN Arnoldo Munguia ph, RN RN jl7 Julia Dumont RN RN ap3 Kerry Cali6 Corrections: (The following items were deleted from the chart) 12:36 12:34 Chief complaint: Patient states: dropped a heaving mirror on right foot about an jl7 hour and a half ago, reports pain and swelling, trouble bending toes jl7 12:36 12:34 Coronavirus screen: At this time, the client does not indicate any symptoms jl7 associated with coronavirus-19. jl7 12:36 12:34 Ebola Screen: No symptoms or risks identified at this time. 7 jl7 12:36 12:34 Initial Sepsis Screen: Does the patient meet any 2 criteria? No. Patient's jl7 initial sepsis screen is negative. Does the patient have a suspected source of infection? No. Patient's initial sepsis screen is negative. jl7 12:36 12:34 Risk Assessment: Do you want to hurt yourself or someone else? Patient reports no jl7 desire to harm self or others. 7 12:36 12:34 Onset of symptoms was July 09, 2024 7 7 12:36 12:34 Method Of Arrival: Ambulatory [place] [id number] 12:36 12:34 BP 131 / 93; Pulse 93bpm; Resp 17bpm; Pulse Ox 96%; Temp 98.5F; Pain 9/10, Adult; 7 7 12:36 12:34 Acuity: JAYME 4 jl7 jl7 17:21 17:20 Patient left the ED. aa5 aa5
[2024-07-09] MEDS ORDERED: MORPHINE 4 MG/ML SYR ONE (16:42)
[2024-07-09 17:57] VITALS: TEMP 97.9; O2SAT 100
[2024-07-09 17:58] VITALS: BP 148/89
== END 2024-07-09 17:20 | disposition home or self-care (01) ==
LOC: ER 12:20
DX: M54.16 Radiculopathy, lumbar region (principal)
CPT/HCPCS: 36415; 72148; 80048; 85025; 85610; 85730; 93925; 96374; 99284